=== PATIENT | female | born 2005 | race Caucasian/White ===

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

== ENCOUNTER → 2024-10-04 14:32 | Outpatient (BNVA) | payer BC, SELFPAY | PROVIDERS: PCP Nurse Practitioner Family; Visit Provider Nurse Practitioner Family | DX: N93.9 Abnormal uterine and vaginal bleeding, unspecified (principal); R35.0 Frequency of micturition | CPT/HCPCS: 81000; 81025 ==